=== PATIENT | female | born 1990 | race Caucasian/White ===

== ENCOUNTER 2016-09-10 10:00 | Outpatient (RCR) | payer MEDICAID ==
--- OUTSIDE RECORDS SUMMARY | 2016-08-29 12:04 | XMS REPORT | Continuity of Care Document ---
Author Author [facility] Organization [facility] Address Unknown Phone Unavailable Care Team Providers Care Engine Dynamometer Tester Name Role Phone NO, LOCAL PHYSICIAN PCP Unavailable Insurance Providers Payer Name Policy Number Subscriber Name Relationship Medicaid [place] [id number] Tali Cook 19 Self / Same As Patient Advance Directives Directive Response Recorded Date/Time Advance Directives No 04/24/16 3:50pm Resuscitation Status Full Code 04/24/16 3:50pm Chief Complaint and Reason for Visit Chief Complaint -Female Reason for Visit 18 weeks gestation of Pain of round ligament affecting , antepartum Problems Active Problems Medical Problem Onset Date Status 18 weeks gestation of Unknown Acute Pain of round ligament affecting , antepartum Unknown Acute Medications Current Home Medications Medication Dose Units Route Directions Days/Qty Instructions Start Date [Xanax] 04/24/16 Cephalexin 500 Mg 500 Mg Oral Three Times A Day 15 04/24/16 Social History Social History Problem Response Recorded Date/Time Recreational Drug Use No 04/24/2016 3:50pm Recent Foreign Travel No 04/24/2016 3:42pm Recent Infectious Disease Exposure No 04/24/2016 3:42pm Hospitalization with Isolation Denies 04/24/2016 3:42pm Smoking Status Current Everyday Smoker 04/24/2016 3:50pm Query Response Start Date Stop Date Smoking Status Current Everyday Smoker Hospital Discharge Instructions No hospital discharge instructions. Plan of Care Discharge Date 04/24/16 6:49pm Disposition 01 HOME, SELF-CARE Condition at Discharge Improved Instructions/Education Provided (ED) Prescriptions See Medication Section Referrals SHEYLA,JUNIE N MD - NO,LOCAL PHYSICIAN - Primary Care Physician Additional Instructions/Education All discharge instructions reviewed with patient and/or family. Voiced understanding. Medications as instructed. Tylenol extra strength [id number] as directed for pain. Drink plenty of fluids. Follow-up with Dr. Carrion April 29 as previously scheduled. Return to the emergency department for worsened pain, fever, vomiting, inability to urinate, vaginal bleeding with greater than 2 pads per hour for greater than 2 hours, or any other concerns. Functional Status No functional status results. Allergies, Adverse Reactions, Alerts Allergen Type Severity Reaction Status Last Updated Latex Allergy Unknown Active 04/24/16 Immunizations No immunization records. Vital Signs Acute Vital Signs Vital Response Date/Time Temperature (Fahrenheit) 97.2 degrees F (97.6 - 99.5) 04/24/2016 3:42pm Temperature (Calculated Celsius) 36.19926 degrees C (36.4 - 37.5) 04/24/2016 3:42pm Pulse Rate (adult) 100 bpm (60 - 90) 04/24/2016 6:49pm Respiratory Rate 18 bpm (12 - 24) 04/24/2016 6:49pm O2 Sat by Pulse Oximetry 98 % (88 - 100) 04/24/2016 6:49pm Blood Pressure 126/81 mm Hg 04/24/2016 6:49pm Blood Pressure Mean 96 mm Hg 04/24/2016 3:42pm Pain Numeric Pain Scale 10-Worst Possible Pain 04/24/2016 6:49pm Height (Feet) 5 feet 04/24/2016 3:42pm Height (Inches) 4 inches 04/24/2016 3:42pm Height (Calculated Centimeters) 162.786837 cm 04/24/2016 3:42pm Weight (Pounds) 154 pounds 04/24/2016 3:42pm Weight (Calculated Kilograms) 69.676544 kilograms 04/24/2016 3:42pm Height 5 ft 4 in Weight 154 lb Body Mass Index 26.4 kg/m^2 Results Laboratory Results Test Name Result Units Flags Reference Collection Date/Time Result Date/ Time Comments White Blood Count 10.8 10^3/uL 4.3-11.0 04/24/2016 4:41pm 04/24/2016 4: 56pm Red Blood Count 3.96 10^6/uL L 4.35-5.85 04/24/2016 4:41pm 04/24/2016 4: 56pm Hemoglobin 12.8 G/DL 11.5-16.0 04/24/2016 4:41pm 04/24/2016 4:56pm Hematocrit 38 % 35-52 04/24/2016 4:41pm 04/24/2016 4:56pm Mean Corpuscular Volume 97 FL 80-99 04/24/2016 4:41pm 04/24/2016 4: 56pm Mean Corpuscular Hemoglobin 32 PG 25-34 04/24/2016 4:41pm 04/24/2016 4: 56pm Mean Corpuscular Hemoglobin Concent 34 G/DL 32-36 04/24/2016 4:41pm 04/2016 4:56pm Red Cell Distribution Width 13.5 % 10.0-14.5 04/24/2016 4:41pm 2015 4:56pm Platelet Count 373 10^3/uL 130-400 04/24/2016 4:41pm 04/24/2016 4:56pm Mean Platelet Volume 9.5 FL 7.4-10.4 04/24/2016 4:41pm 04/24/2016 4: 56pm Neutrophils (%) (Auto) 70 % 42-75 04/24/2016 4:41pm 04/24/2016 4:56pm Lymphocytes (%) (Auto) 22 % 12-44 04/24/2016 4:41pm 04/24/2016 4:56pm Monocytes (%) (Auto) 6 % 0-12 04/24/2016 4:41pm 04/24/2016 4:56pm Eosinophils (%) (Auto) 1 % 0-10 04/24/2016 4:41pm 04/24/2016 4:56pm Basophils (%) (Auto) 0 % 0-10 04/24/2016 4:41pm 04/24/2016 4:56pm Neutrophils # (Auto) 7.6 X 10^3 1.8-7.8 04/24/2016 4:41pm 04/24/2016 4: 56pm Lymphocytes # (Auto) 2.4 X 10^3 1.0-4.0 04/24/2016 4:41pm 04/24/2016 4: 56pm Monocytes # (Auto) 0.7 X 10^3 0.0-1.0 04/24/2016 4:41pm 04/24/2016 4: 56pm Eosinophils # (Auto) 0.1 10^3/uL 0.0-0.3 04/24/2016 4:41pm 04/24/2016 4 :56pm Basophils # (Auto) 0.0 10^3/uL 0.0-0.1 04/24/2016 4:41pm 04/24/2016 4: 56pm Urine Color YELLOW 04/24/2016 4:32pm 04/24/2016 5:07pm Urine Clarity CLEAR 04/24/2016 4:32pm 04/24/2016 5:07pm Urine pH 6 5-9 04/24/2016 4:32pm 04/24/2016 5:07pm Urine Specific [place] 1.020 1.016-1.022 04/24/2016 4:32pm 2015 5:07pm Urine Protein NEGATIVE NEGATIVE 04/24/2016 4:32pm 04/24/2016 5:07pm Urine Glucose (UA) NEGATIVE NEGATIVE 04/24/2016 4:32pm 04/24/2016 5: 07pm Urine RBC (Auto) NEGATIVE NEGATIVE 04/24/2016 4:32pm 04/24/2016 5: 07pm Urine Ketones NEGATIVE NEGATIVE 04/24/2016 4:32pm 04/24/2016 5:07pm Urine Nitrite NEGATIVE NEGATIVE 04/24/2016 4:32pm 04/24/2016 5:07pm Urine Bilirubin NEGATIVE NEGATIVE 04/24/2016 4:32pm 04/24/2016 5: 07pm Urine Urobilinogen NORMAL MG/DL NORMAL 04/24/2016 4:32pm 04/24/2016 5: 07pm Urine Leukocyte Esterase 1+ * NEGATIVE 04/24/2016 4:32pm 04/24/2016 5: 07pm Urine RBC NONE /HPF 04/24/2016 4:32pm 04/24/2016 5:07pm Urine WBC 0-2 /HPF 04/24/2016 4:32pm 04/24/2016 5:07pm Urine Bacteria TRACE /HPF 04/24/2016 4:32pm 04/24/2016 5:07pm Urine Squamous Epithelial Cells 25-50 /HPF * 04/24/2016 4:32pm 2015 5:07pm Urine Crystals NONE /LPF 04/24/2016 4:32pm 04/24/2016 5:07pm Urine Casts NONE /LPF 04/24/2016 4:32pm 04/24/2016 5:07pm Urine Mucus NEGATIVE /LPF 04/24/2016 4:32pm 04/24/2016 5:07pm Urine Culture Indicated NO 04/24/2016 4:32pm 04/24/2016 5:07pm Sodium Level 136 MMOL/L 135-145 04/24/2016 4:41pm 04/24/2016 5:15pm Potassium Level 3.9 MMOL/L 3.6-5.0 04/24/2016 4:41pm 04/24/2016 5:15pm Chloride Level 103 MMOL/L 98-107 04/24/2016 4:41pm 04/24/2016 5:15pm Carbon Dioxide Level 25 MMOL/L 21-32 04/24/2016 4:41pm 04/24/2016 5: 15pm Anion Gap 8 MMOL/L 5-14 04/24/2016 4:41pm 04/24/2016 5:15pm Blood Urea Nitrogen 10 MG/DL 7-18 04/24/2016 4:41pm 04/24/2016 5:15pm Creatinine 0.58 MG/DL L 0.60-1.30 04/24/2016 4:41pm 04/24/2016 5:15pm BUN/Creatinine Ratio 17 04/24/2016 4:41pm 04/24/2016 5:15pm Estimat Glomerular Filtration Rate > 60 04/24/2016 4:41pm 2015 5:15pm GFR INTERPRETIVE DATA UNITS FOR ESTIMATED GFR (eGFR): mL/min/1.73 M2 REFERENCE RANGE FOR ESTIMATED GFR (eGFR) eGFR NORMAL eGFR >60 MODERATELY DECREASED eGFR 30-59 SEVERLY DECREASED eGFR 15-29 KIDNEY FAILURE <15 (OR DIALYSIS) Glucose Level 82 MG/DL 70-105 04/24/2016 4:41pm 04/24/2016 5:15pm Calcium Level 8.8 MG/DL 8.5-10.1 04/24/2016 4:41pm 04/24/2016 5:15pm Total Bilirubin 0.2 MG/DL 0.1-1.0 04/24/2016 4:41pm 04/24/2016 5:15pm Alkaline Phosphatase 53 U/L 40-136 04/24/2016 4:41pm 04/24/2016 5:15pm Aspartate Amino Transf (AST/SGOT) 13 U/L 5-34 04/24/2016 4:41pm 2015 5:15pm Alanine Aminotransferase (ALT/SGPT) 12 U/L 0-55 04/24/2016 4:41pm 04/24 5:15pm Total Protein 6.6 G/DL 6.4-8.2 04/24/2016 4:41pm 04/24/2016 5:15pm Albumin 3.9 G/DL 3.2-4.5 04/24/2016 4:41pm 04/24/2016 5:15pm Acetaminophen Screen NEGATIVE NEGATIVE 04/24/2016 4:32pm 04/24/2016 5 :08pm APAP=ACETAMINOPHEN/PARACETAMOL Procedures No known history of procedures. Encounters Encounter Location Arrival/Admit Date Discharge/Depart Date Attending Provider Registered Emergency Room [facility] 04/24/16 3:18pm EMILY HOANG Recent Diagnosis
[2016-08-29 13:18] VITALS: BP 122/85
--- NOTE | 2016-08-29 15:22 | Diagnostic Imaging Report ---
INDICATION: Gestational hypertension. biophysical profile performed in the routine fashion. The fetus is in cephalic presentation. Heart rate is 136 beats per minute. Placenta is anterior and grade 2. Fetus scored 2 out of 2 in breathing, movement, tone, and amniotic fluid index. Amniotic fluid index is 7 cm. The fetus measures 36 weeks 3 days by comparison measurements which represents normal growth since 06/03/2016. IMPRESSION: biophysical profile score 8 out of 8. No detectable abnormality. Dictated by: Dictated on workstation # [id number]
[~2016-09-10 10:00] MED LIST: AMOX500C2 PO; CEPH500C PO; FLUO20CA42 PO; XANAX
[2016-09-10 10:35] LABS: PROTEIN/CREATININE RATIO 0.11
[2016-09-10 11:15] VITALS: BP 127/82
--- NOTE | 2016-09-10 11:39 | Diagnostic Imaging Report ---
EXAMINATION: OB ultrasound. Biophysical profile. FINDINGS: The heart rate is 156 BPM. The presentation is cephalic. The placenta is anterior with no placenta previa. The MEGHANN is 8.6 cm. The biophysical profile parameters all meet criteria and are within normal limits. IMPRESSION: The total biophysical profile score is 8 out of 8 points. Dictated by: Dictated on workstation # [id number]
[2016-09-11] MEDS ORDERED: CYCL10TA9 PO (18:54)
[2016-09-15] MEDS ORDERED: ACET-789 PO (22:33)
[2016-09-15] MEDS ORDERED: PREN1TAB71 PO (22:33)
[2016-09-15] MEDS ORDERED: ACET325T38 PO (22:34)
[2016-09-17] MEDS ORDERED: IBUP-1773 PO (09:24)
== END 2016-11-27 | disposition home or self-care (01) ==
LOC: RAD 10:00
PROVIDERS: ATTEND Family Medicine
DX: O13.3 Gestational [pregnancy-induced] hypertension without significant proteinuria, third trimester (principal); Z3A.36 36 weeks gestation of pregnancy
CPT/HCPCS: 59025; 76805; 76819; 82570; 84156